=== PATIENT | female | born 1970 | race Caucasian/White ===

== ENCOUNTER → 2017-11-17 | Outpatient (CLI) | payer MEDICAID ==
--- NOTE | 2017-11-17 09:23 | WOMENS IMAGING REPORT ---
EXAM DESCRIPTION: BILAT SCREENING MAMMO W/CAD COMPLETED DATE/TIME: 11/17/2017 9:02 am REASON FOR STUDY: SCREENING MAMMO Z12.31 ENCNTR SCREEN MAMMOGRAM FOR MALIGNANT NEOPLASM OF SUELLEN COMPARISON: 06/07/2016 and 01/21/2015. TECHNIQUE: Standard craniocaudal and mediolateral oblique views of each breast recorded using [employer] acquisition. LIMITATIONS: None. FINDINGS: Findings present which are benign by mammographic criteria. No suspicious masses, calcifi cations or architectural distortion. Pertinent benign findings: Stable benign calcifications. Read with the assistance of CAD. .[facility] - R2 Cenova Version 1.3 .[facility] - R2 Cenova Version 1.3 .[facility] - R2 Cenova Version 2.4 .[facility] [place] Cenova Version 2.4 .[facility] - R2 Quality Assurance Advisor Version 9.2 Benign mammographic findings may include one or more of the following: Smooth masses, popcorn/rim/co arse calcifications, asymmetries, post-procedure changes, and lesions with long-standing stability. IMPRESSION: BENIGN MAMMOGRAPHIC FINDINGS. BIRADS 2 BREAST DENSITY: a. The breasts are almost entirely fatty. BIRAD: 2 BENIGN FINDING(S) RECOMMENDATION: ROUTINE SCREENING COMMENT: The patient has been notified of the results by letter per [place] requirements. Additional no tification policies are in place for contacting patient with suspicious or incomplete findings. Quality ID #225: The [employer] recommends an annual screening mammogram for women aged 40 years or over. This facility utilizes a reminder system to ensure that all patients receive reminder letters, and/or direct phone calls for appointments. This includes reminders for routine scr eening mammograms, diagnostic mammograms, or other Breast Imaging Interventions when appropriate. Th is patient will be placed in the appropriate reminder system. The [employer] (ACR) has developed recommendations for screening MRI of the breast s in certain patient populations, to be used in conjunction with mammography. Breast MRI surveillanc e may be appropriate for women with more than 20% lifetime risk of developing breast cancer as deter mined by genetic testing, significant family history of the disease, or history of mantle radiation f or Hodgkins Disease. ACR Practice Guidelines 2008. TECHNICAL DOCUMENTATION: FINDING NUMBER: (1) ASSESSMENT: (1) JOB ID: [id number] [employer]- All Rights Reserved
== END ==
LOC: WI 08:45
PROVIDERS: ATTEND Family Medicine
DX: Z12.31 Encounter for screening mammogram for malignant neoplasm of breast (principal)
CPT/HCPCS: 77067; G0202

== ENCOUNTER 2020-09-12 19:06 | Emergency (ER) | payer MEDICAID ==
--- NOTE | 2020-09-12 19:42 | ER Document Report ---
ED Medical Screen (RME) - General Chief Complaint: Leg Pain Stated Complaint: RIGHT LEG PAIN Time Seen by Provider: 09/12/20 19:31 Primary Care Provider: CRUZ ROJO MD [Primary Care Provider] - Follow up as needed Mode of Arrival: Ambulatory Information source: Patient Notes: HPI; 50-year-old female presents to the emergency room complaining of left leg swelling for the past 3 days. She denies any trauma or injury. No history of DVTs or PEs. No family history of clotting disorders. Not currently on control. Also is complaining of bilateral hand numbness and tingling for the past 3 days. States that it is intermittent. Nothing makes it worse, nothing makes it better. Unable to determine how long her symptoms last. Does have a history of lower chronic back pain has been taking her hydrocodone. She denies loss control over her bowels or bladder, no saddle anesthesia. No red flags. Denies any numbness or tingling to her upper extremities. No generalized upper extremity weakness. PE: Alert and oriented x3. Cervical spine without tenderness to palpation. Lungs: Clear to auscultation without rales, rhonchi, wheezes. Heart: Regular rate rhythm without murmurs, rubs, gallops. Healthcare Management strength is equal and adequate bilaterally. Full sensation to painful and light stimuli to both upper extremities. There is swelling noted to the left leg from the thigh to the ankle. Positive pedal pulse to the left foot. Neurovascularly intact. Ambulatory with a steady gait. I have greeted and performed a rapid initial assessment of this patient. A comprehensive ED assessment and evaluation of the patient, analysis of test results and completion of the medical decision making process will be conducted by additional ED providers. I have specifically instructed the patient or family members with the patient to immediately return to any nursing staff should anything change in the patient's condition or with their chief complaint. TRAVEL OUTSIDE OF THE [place] IN LAST 30 DAYS: No - Related Data Allergies/Adverse Reactions: oxycodone HCl [From OxyContin] Allergy (Verified 11/25/14 09:35) Past Medical History Pulmonary Medical History: Reports: Hx COPD Past Surgical History: Reports: Hx Cholecystectomy, Hx Tubal Ligation - Immunizations Hx Diphtheria, Pertussis, Tetanus Vaccination: Yes Physical Exam - Vital signs Vitals: Temp Pulse Resp BP Pulse Ox 98.3 F 74 16 136/63 H 96 09/12/20 19:23 09/12/20 19:23 09/12/20 19:23 09/12/20 19:23 09/12/20 19:23 Course - Vital Signs Vital signs: Temp Pulse Resp BP Pulse Ox 98.3 F 74 16 136/63 H 96 09/12/20 19:23 09/12/20 19:23 09/12/20 19:23 09/12/20 19:23 09/12/20 19:23 Doctor's Discharge - Discharge Referrals: CRUZ ROJO MD [Primary Care Provider] - Follow up as needed
--- NOTE | 2020-09-12 20:27 | RADIOLOGY REPORT (SQ) ---
EXAM DESCRIPTION: CT CERVICAL SPINE WITHOUT IV CONTRAST COMPLETED DATE/TME: 09/12/2020 19:37 CLINICAL HISTORY: 50 years, Female, Paresthesia COMPARISON: None. TECHNIQUE: Noncontrast CT cervical spine was acquired. Coronal and sagittal reformations were created. Images stored on PACS. All CT scanners at this facility use dose modulation, iterative reconstruction, and/or weight based dosing when appropriate to reduce radiation dose to as low as reasonably achievable (ALARA). [facility]: Dose Right [facility]: CareDose [facility]: Dose Right [facility]: Teradose 4D [facility]: Intellijoule LIMITATIONS: None. FINDINGS: Limited evaluation of the posterior fossa structures reveals no suspicious abnormal normality. Occipital condyles are normal. Lateral masses of C1 and C2 align properly. Base and tip of the dens are intact. Craniocervical alignment is maintained. Cervical vertebral body heights and alignments are maintained. Mild multilevel cervical spondylosis is noted, designated by hypertrophic endplate spurring. In addition, there is straightening of the normal cervical lordosis, either related to positioning and/or muscle spasm. However, there is no resultant foraminal stenosis at any level. No acute fracture or malalignment. Limited evaluation of the lung apices reveals mild emphysematous change. Paravertebral soft tissues show no suspicious abnormality. IMPRESSION: No acute fracture or malalignment. Mild multilevel cervical spondylosis. TECHNICAL DOCUMENTATION: Quality ID # [id number]: Final reports with documentation of one or more dose reduction techniques (e.g., Automated exposure control, adjustment of the mA and/or kV according to patient size, use of iterative reconstruction technique) copyright 2011 [employer]- All Rights Reserved
--- NOTE | 2020-09-12 23:16 | RADIOLOGY REPORT (SQ) ---
EXAM DESCRIPTION: US EXTREMITY VEINS UNILATERAL COMPLETED DATE/TME: 09/12/2020 19:37 CLINICAL HISTORY: 50 years, Female, left leg swelling COMPARISON: None. TECHNIQUE: Axial 2-D grayscale images of the left lower leg were acquired. Doppler was utilized. LIMITATIONS: None. FINDINGS: Left common femoral, femoral, popliteal, posterior tibial, peroneal, greater saphenous, and small saphenous veins demonstrate normal compressibility and phasicity. Right common femoral vein also appears normal. Superficial soft tissues show no suspicious abnormality. IMPRESSION: No evidence of deep venous thrombosis within the left lower extremity. copyright 2010 [employer]- All Rights Reserved
--- NOTE | 2020-09-13 00:20 | ER Document Report ---
ED Extremity Problem, Lower - General Chief Complaint: Leg Pain Stated Complaint: RIGHT LEG PAIN Time Seen by Provider: 09/12/20 19:31 Primary Care Provider: CRUZ ROJO MD [Primary Care Provider] - Follow up as needed Mode of Arrival: Ambulatory Notes: CHIEF COMPLAINT: Leg pain and swelling HPI: 50-year-old obese female presenting to the emergency department complaining of left leg pain and swelling. States the pain seems more prominent over the left knee. Has history of chronic back problems as well as chronic knee problems for which she is on narcotic pain medication. Does have a primary care provider that she follows with but has not seen them in the last 3 days for evaluation of the leg. No chest pain or shortness of breath. No abdominal pain. No incontinence of urine or bowel ROS: See HPI - all other systems were reviewed and are otherwise negative Constitutional: no fever Eyes: no drainage, no blurred vision ENT: no runny nose, no sore throat Cardiovascular: no chest pain Resp: no SOB, no cough GI: no vomiting, no diarrhea, no abdominal pain : no dysuria Integumentary: no rash Allergy: no hives Musculoskeletal: + extremity pain or swelling Neurological: no numbness/tingling, no weakness MEDICATIONS: I agree with the patient medications as charted by the RN. ALLERGIES: I agree with the allergies as charted by the RN. PAST MEDICAL HISTORY/PAST SURGICAL HISTORY: Reviewed and agree as charted by RN. SOCIAL HISTORY: Reviewed and agree as charted by RN. FAMILY HISTORY: No significant familial comorbid conditions directly related to patient complaint EXAM: Reviewed vital signs as charted by RN. CONSTITUTIONAL: Alert and oriented and responds appropriately to questions. Well-appearing; well-nourished HEAD: Normocephalic; atraumatic EYES: PERRL; Conjunctivae clear, sclerae non-icteric ENT: normal nose; no rhinorrhea; moist mucous membranes NECK: Supple without meningismus; non-tender; no cervical lymphadenopathy, no masses CARD: symmetric distal pulses RESP: Normal chest excursion without splinting or tachypnea ABD/GI: non-distended BACK: The back appears normal and is non-tender to palpation EXT: Normal ROM in all joints; I do not appreciate significant discomfort on palpation over the anterior left knee. I do not visualize any edema or swelling of the left leg when compared with the right, no pitting edema; no cyanosis, no effusions SKIN: Normal color for age and race; warm; dry; good turgor; no acute lesions noted NEURO: Moves all extremities equally; Motor and sensory function intact PSYCH: The patient's mood and manner are appropriate. Grooming and personal hygiene are appropriate. MDM: 50-year-old female presenting for left leg swelling that is somewhat subjective in nature. Her pain and swelling issues seem to be focused around the left knee. Doppler study was negative for acute findings. No DVT. I do not visualize any swelling of the leg on exam. She will follow up with her PCP TRAVEL OUTSIDE OF THE [place] IN LAST 30 DAYS: No - Related Data Allergies/Adverse Reactions: oxycodone HCl [From OxyContin] Allergy (Verified 11/25/14 09:35) Past Medical History - General Information source: Patient - Social History Smoking Status: Unknown if Ever Smoked Family History: Reviewed & Not Pertinent Pulmonary Medical History: Reports: Hx COPD Past Surgical History: Reports: Hx Cholecystectomy, Hx Tubal Ligation - Immunizations Hx Diphtheria, Pertussis, Tetanus Vaccination: Yes Physical Exam - Vital signs Vitals: Temp Pulse Resp BP Pulse Ox 98.3 F 74 16 136/63 H 96 09/12/20 19:23 09/12/20 19:23 09/12/20 19:23 09/12/20 19:23 09/12/20 19:23 Course - Vital Signs Vital signs: Temp Pulse Resp BP Pulse Ox 98.3 F 74 16 136/63 H 96 09/12/20 19:23 09/12/20 19:23 09/12/20 19:23 09/12/20 19:23 09/12/20 19:23 Discharge - Discharge Clinical Impression: Leg pain, left Condition: Stable Disposition: HOME, SELF-CARE Additional Instructions: Follow-up with your primary care provider on Tuesday for further evaluation and treatment of your left leg pain and swelling issues. Her Doppler study tonight did not show evidence of a blood clot in the leg. Continue your previous pain medications until you follow-up with your PCP Referrals: CRUZ ROJO MD [Primary Care Provider] - Follow up as needed
[2020-09-13 00:59] VITALS: BP 143/73
== END 2020-09-13 00:59 | disposition home or self-care (01) ==
LOC: ER 19:06
DX: M79.605 Pain in left leg (principal); M79.89 Other specified soft tissue disorders; Z90.49 Acquired absence of other specified parts of digestive tract; Z98.51 Tubal ligation status
CPT/HCPCS: 72125; 93971; 99284